=== PATIENT | male | born 1955 | race African-American/Black ===

== ENCOUNTER 2021-06-25 15:56 | Inpatient (IN) | payer MEDICARE, MEDICAID ==
[2021-06-25] MEDS ORDERED: Senokot S 8.6-50 MG TAB PO PRN (19:20)
[2021-06-25] MEDS ORDERED: Ondansetron PF 4 MG/2 ML Vial IVP PRN (19:20)
[2021-06-25] MEDS ORDERED: Acetaminophen 325 MG TAB PO PRN (19:20)
[2021-06-25] MEDS ORDERED: Calcium Carbonate 500 MG ChewTAB PO PRN (19:20)
[2021-06-25] MEDS ORDERED: Sodium Chloride 0.9% 1,000 ML IV SCH (19:30)
[2021-06-25] MEDS ORDERED: Clopidogrel Bisulfate 75 MG TAB PO SCH (20:00)
[2021-06-25] MEDS: Atorvastatin Calcium 40 MG TAB PO SCH (21:17)
[2021-06-26 04:51] LABS: Anion Gap 14 mmol/L (10-20); BUN (Urea Nitrogen) 13 mg/dL (8.4-25.7); Calc. Creatinine Clearance 89 mL/min (70-130); Calcium 9.4 mg/dL (7.8-10.44); Carbon Dioxide 20 mmol/L (23-31); Chloride 109 mmol/L (98-107); Cholesterol 106 mg/dl (< 200 Desired); Glucose 82 mg/dL (80-115); HDL Cholesterol 21 mg/dL (>60 Neg Risk); LDL Cholesterol, Calculated 65 mg/dL; Potassium 4.1 mmol/L (3.5-5.1); Sodium 139 mmol/L (136-145); Triglycerides 101 mg/dL (Less than 150)
[2021-06-26 05:18] LABS: Thyroid Stimulating Hormone 0.395 uIU/mL (0.35-4.94)
[2021-06-26] MEDS: Enoxaparin Sodium 40 MG/0.4 ML SYRINGE SC SCH (09:49)
[2021-06-26] MEDS: Clopidogrel Bisulfate 75 MG TAB PO SCH (09:49)
[2021-06-26] MEDS: Ezetimibe 10 MG TAB PO SCH (09:50)
[2021-06-26] MEDS: Aspirin 81 mg Enteric Coated Tablet PO SCH (09:50)
[2021-06-26 18:03] LABS: Bilirubin Neg (Negative); Blood, Urine Negative (Negative); Clarity Clear (Clear); Glucose, Urine (Dipstick) Normal (Negative); Ketone, Urine Negative (Negative); Leukocyte 25 (Negative); Nitrite Negative (Negative); Protein, Urine (Dipstick) Negative (Neg-Trace); Specific Gravity, Urine 1.015 (1.002-1.036); pH, Urine 6.5 (5.0-9.0)
[2021-06-26 18:23] LABS: Bacteria/HPF 1+ HPF (None Seen); Mucous/LPF Few LPF (<2+); RBC/HPF 0-3 HPF (0-3); Squamous Epithelial 0-3 HPF (0-3)
[2021-06-26] MEDS ORDERED: hydrALAZINE 20 MG/ML VIAL SLOW IVP PRN (18:44)
[2021-06-26] MEDS ORDERED: Amlodipine 5 MG TAB PO SCH (19:00)
[2021-06-26] MEDS: Atorvastatin Calcium 40 MG TAB PO SCH (20:50)
[2021-06-26] MEDS: Cephalexin 500 MG CAP PO SCH (20:50)
[2021-06-27 00:29] VITALS: BMI 27.3
[2021-06-27] MEDS: Folic Acid 1 MG TAB PO SCH (09:32)
[2021-06-27] MEDS: Amlodipine 5 MG TAB PO SCH (09:32)
[2021-06-27] MEDS: Cephalexin 500 MG CAP PO SCH ×2 (09:32→21:14)
[2021-06-27] MEDS: Clopidogrel Bisulfate 75 MG TAB PO SCH (09:32)
[2021-06-27] MEDS: Enoxaparin Sodium 40 MG/0.4 ML SYRINGE SC SCH (09:32)
[2021-06-27] MEDS: Aspirin 81 mg Enteric Coated Tablet PO SCH (09:32)
[2021-06-27] MEDS: Ezetimibe 10 MG TAB PO SCH (09:32)
[2021-06-27] MEDS: Atorvastatin Calcium 40 MG TAB PO SCH (21:14)
[2021-06-28] MEDS: Aspirin 81 mg Enteric Coated Tablet PO SCH (11:18)
[2021-06-28] MEDS: Cephalexin 500 MG CAP PO SCH ×2 (11:18→20:12)
[2021-06-28] MEDS: Clopidogrel Bisulfate 75 MG TAB PO SCH (11:18)
[2021-06-28] MEDS: Ezetimibe 10 MG TAB PO SCH (11:18)
[2021-06-28] MEDS: Amlodipine 5 MG TAB PO SCH (11:18)
[2021-06-28] MEDS: Folic Acid 1 MG TAB PO SCH (11:19)
[2021-06-28] MEDS: Enoxaparin Sodium 40 MG/0.4 ML SYRINGE SC SCH (11:19)
[2021-06-28] MEDS ORDERED: FLU VACC QS2021-22(65YR UP)/PF 240 MCG/0.7 ML SYRINGE IM ONE (18:00)
[2021-06-28] MEDS: Atorvastatin Calcium 40 MG TAB PO SCH (20:12)
[2021-06-29] MEDS: Amlodipine 5 MG TAB PO SCH (08:31)
[2021-06-29] MEDS: Clopidogrel Bisulfate 75 MG TAB PO SCH (08:31)
[2021-06-29] MEDS: Ezetimibe 10 MG TAB PO SCH (08:31)
[2021-06-29] MEDS: Enoxaparin Sodium 40 MG/0.4 ML SYRINGE SC SCH (08:31)
[2021-06-29] MEDS: Cephalexin 500 MG CAP PO SCH (08:31)
[2021-06-29] MEDS: Folic Acid 1 MG TAB PO SCH (08:31)
[2021-06-29] MEDS: Aspirin 81 mg Enteric Coated Tablet PO SCH (08:31)
[2021-06-29 12:26] VITALS: TEMP 98.2
[2021-06-29 15:25] VITALS: BP 118/55
== END 2021-06-29 18:10 | DRG 65 ==
LOC: INTOOBSV 16:47 → CSHTELE 16:47 → OBSVTOIN 06-27 10:34
PROVIDERS: ADMIT Family Medicine; ATTEND Family Medicine
DX: I63.81 Other cerebral infarction due to occlusion or stenosis of small artery (principal); G81.91 Hemiplegia, unspecified affecting right dominant side; Z20.822 Contact with and (suspected) exposure to COVID-19; R47.9 Unspecified speech disturbances; N18.2 Chronic kidney disease, stage 2 (mild); R82.81 Pyuria; E78.2 Mixed hyperlipidemia; I12.9 Hypertensive chronic kidney disease with stage 1 through stage 4 chronic kidney disease, or unspecified chronic kidney disease; F17.210 Nicotine dependence, cigarettes, uncomplicated; Q85.00 Neurofibromatosis, unspecified; Z79.82 Long term (current) use of aspirin; Z79.02 Long term (current) use of antithrombotics/antiplatelets; Z86.73 Personal history of transient ischemic attack (TIA), and cerebral infarction without residual deficits; Z71.6 Tobacco abuse counseling
CPT/HCPCS: 70551; 80048; 80061; 81001; 82607; 82746; 84443; 93306; 93880; 96372; G0378; J1650; J7050